=== PATIENT | male | born 1985 | race Hispanic/Latino ===

== ENCOUNTER 2020-10-24 11:08 | Emergency (ER) | payer BC ==
--- NOTE | 2020-10-24 15:19 | ER ---
Nurse's Notes [facility] Name: Aravind Kaplan Age: 34 yrs Sex: Male : 1985 Arrival Date: 10/24/2020 Time: 11:14 Bed 17 Private MD: Diagnosis: Hypertension;Palpitations Presentation: 10/24 12:09 Chief complaint: Patient states: LEIVA, not feeling good, dizzy at times, fast HR, anxious ll1 for 1 day. No fever, no cough. Coronavirus screen: Client denies travel out of the [place] in the last 14 days. At this time, the client does not indicate any symptoms associated with coronavirus-19. Ebola Screen: Patient denies travel to an Ebola-affected area in the 21 days before illness onset. Initial Sepsis Screen: Does the patient meet any 2 criteria? No. Patient's initial sepsis screen is negative. Does the patient have a suspected source of infection? No. Patient's initial sepsis screen is negative. Risk Assessment: Do you want to hurt yourself or someone else? Patient reports no desire to harm self or others. Onset of symptoms. 12:09 Method Of Arrival: Ambulatory ll1 12:09 Acuity: PARISH 3 ll1 Historical: - Allergies: 12:13 No Known Allergies; ll1 - PMHx: 12:13 Kidney stones; ll1 - PSHx: 12:13 Kidney stents; ll1 - Immunization history:: Flu vaccine is not up to date. - Social history:: Smoking status: Patient denies any tobacco usage or history of. Patient/guardian denies using tobacco, the patient reports quitting approximately 2 years ago. Screenin:03 Abuse screen: Denies threats or abuse. Nutritional screening: No deficits noted. tw2 Tuberculosis screening: No symptoms or risk factors identified. Fall Risk None identified. Assessment: 14:40 General: Appears in no apparent distress. obese, well groomed, Behavior is calm, tw2 cooperative, appropriate for age. Pain: Denies pain. Neuro: Level of Consciousness is awake, alert, obeys commands, Oriented to person, place, time, situation. Cardiovascular: Capillary refill < 3 seconds Patient's skin is warm and dry. Cardiovascular: Reports palpitations, "when it happened earlier I was having some palpitations but its fine now". Respiratory: Airway is patent Respiratory effort is even, unlabored, Respiratory pattern is regular, symmetrical. GI: No signs and/or symptoms were reported involving the gastrointestinal system. Abdomen is round non-distended. : No signs and/or symptoms were reported regarding the genitourinary system. EENT: No signs and/or symptoms were reported regarding the EENT system. Derm: No signs and/or symptoms reported regarding the dermatologic system. Skin is intact, is healthy with good turgor, Skin is dry, Skin temperature is warm. Musculoskeletal: Range of motion: intact in all extremities. 15:02 Reassessment: provider at bedside at this time. tw2 15:34 Reassessment: Patient appears in no apparent distress at this time. No changes from tw2 previously documented assessment. Patient and/or family updated on plan of care and expected duration. Pain level reassessed. Patient is alert, oriented x 3, equal unlabored respirations, skin warm/dry/pink. Vital Signs: 12:09 BP 150 / 105; Pulse 97; Resp 16; Temp 99.5; Pulse Ox 100% on R/A; Weight 111.13 kg; ll1 Height 5 ft. 8 in. (172.72 cm); Pain 3/10; 14:45 BP 142 / 83; Pulse 86; Resp 18; Pulse Ox 100% on R/A; tw2 12:09 Body Mass Index 37.25 (111.13 kg, 172.72 cm) ll1 ED Course: 11:14 Patient arrived in ED. mr 12:12 Triage completed. ll1 12:13 Arm band placed on. ll1 14:40 Bed in low position. Call light in reach. air sampling and monitoring on. Pulse ox on. NIBP on. tw2 14:42 Asa Waters PA is PHCP. jr8 14:42 Teofilo Garcia MD is Attending Physician. jr8 14:45 Velvet Westfall, KATIE is Primary Nurse. tw2 15:18 Lewis Bean MD is Referral Physician. jr8 15:35 No provider procedures requiring assistance completed. Patient did not have IV access tw2 during this emergency room visit. Administered Medications: No medications were administered Outcome: 15:19 Discharge ordered by . jr8 15:35 Discharged to home ambulatory. tw2 15:35 Condition: stable 15:35 Discharge instructions given to patient, Instructed on discharge instructions, follow up and referral plans. Demonstrated understanding of instructions, follow-up care. 15:36 Patient left the ED. tw2 Signatures: Natalie Guadarrama Josh, PA PA jr8 Velvet Westfall RN RN tw2 Wilmer Ornelas RN RN ll1
--- NOTE | 2020-10-24 15:19 | EDPHYS ---
Physician Documentation [facility] Name: Aravind Kaplan Age: 34 yrs Sex: Male : 1985 Arrival Date: 10/24/2020 Time: 11:14 Bed 17 Private MD: ED Physician Teofilo Garcia HPI: 10/24 15:19 This 34 yrs old Male presents to ER via Ambulatory with complaints of jr8 Headache, fast heart rate. 15:19 Onset: The symptoms/episode began/occurred acutely, today. Associated signs and jr8 symptoms: Pertinent positives: palpitations . Severity of symptoms: At its worst the pain was mild. The patient has experienced a previous episode. The patient has not recently seen a physician. Patient stated that last time he had this it was elevation in his BP. Patient mildly elevated upon arrival. Historical: - Allergies: 12:13 No Known Allergies; ll1 - PMHx: 12:13 Kidney stones; ll1 - PSHx: 12:13 Kidney stents; ll1 - Immunization history:: Flu vaccine is not up to date. - Social history:: Smoking status: Patient denies any tobacco usage or history of. Patient/guardian denies using tobacco, the patient reports quitting approximately 2 years ago. ROS: 15:19 Eyes: Negative for injury, pain, redness, and discharge, ENT: Negative for injury, jr8 pain, and discharge, Neck: Negative for injury, pain, and swelling, Respiratory: Negative for shortness of breath, cough, wheezing, and pleuritic chest pain, Abdomen/GI: Negative for abdominal pain, nausea, vomiting, diarrhea, and constipation, Back: Negative for injury and pain, MS/Extremity: Negative for injury and deformity, Skin: Negative for injury, rash, and discoloration. 15:19 Cardiovascular: Positive for palpitations. 15:19 Neuro: Positive for headache. Exam: 15:19 Eyes: Pupils equal round and reactive to light, extra-ocular motions intact. Lids and jr8 lashes normal. Conjunctiva and sclera are non-icteric and not injected. Cornea within normal limits. Periorbital areas with no swelling, redness, or edema. ENT: Nares patent. No nasal discharge, no septal abnormalities noted. Tympanic membranes are normal and external auditory canals are clear. Oropharynx with no redness, swelling, or masses, exudates, or evidence of obstruction, uvula midline. Mucous membranes moist. Neck: Trachea midline, no thyromegaly or masses palpated, and no cervical lymphadenopathy. Supple, full range of motion without nuchal rigidity, or vertebral point tenderness. No Meningismus. Cardiovascular: Regular rate and rhythm with a normal S1 and S2. No gallops, murmurs, or rubs. Normal PMI, no JVD. No pulse deficits. Respiratory: Lungs have equal breath sounds bilaterally, clear to auscultation and percussion. No rales, rhonchi or wheezes noted. No increased work of breathing, no retractions or nasal flaring. Abdomen/GI: Soft, non-tender, with normal bowel sounds. No distension or tympany. No guarding or rebound. No evidence of tenderness throughout. Back: No spinal tenderness. No costovertebral tenderness. Full range of motion. Skin: Warm, dry with normal turgor. Normal color with no rashes, no lesions, and no evidence of cellulitis. MS/ Extremity: Pulses equal, no cyanosis. Neurovascular intact. Full, normal range of motion. Neuro: Awake and alert, GCS 15, oriented to person, place, time, and situation. Cranial nerves II-XII grossly intact. Motor strength 5/5 in all extremities. Sensory grossly intact. Cerebellar exam normal. Normal gait. 15:27 ECG was reviewed by the Attending Physician. jr8 Vital Signs: 12:09 BP 150 / 105; Pulse 97; Resp 16; Temp 99.5; Pulse Ox 100% on R/A; Weight 111.13 kg; ll1 Height 5 ft. 8 in. (172.72 cm); Pain 3/10; 14:45 BP 142 / 83; Pulse 86; Resp 18; Pulse Ox 100% on R/A; tw2 12:09 Body Mass Index 37.25 (111.13 kg, 172.72 cm) ll1 MDM: 15:01 Patient medically screened. jr8 15:11 Data reviewed: vital signs, nurses notes, and as a result, I will discharge patient. jr8 Data interpreted: Pulse oximetry: on room air is 100 %. Interpretation: normal. Counseling: I had a detailed discussion with the patient and/or guardian regarding: the historical points, exam findings, and any diagnostic results supporting the discharge/admit diagnosis, the need for outpatient follow up, a family practitioner, to return to the emergency department if symptoms worsen or persist or if there are any questions or concerns that arise at home. 10/24 15:19 Order name: EKG - Nurse/Tech; Complete Time: 15:34 jr8 EC:27 Rate is 77 beats/min. Rhythm is regular, Normal Sinus Rhythm. QRS [place] is Normal. NE jr8 interval is normal at 160 msec. QRS interval is normal at 106 msec. QT interval is normal at 445 msec. No Q waves. T waves are Normal. No ST changes noted. Clinical impression: Normal ECG. Interpreted by me. Reviewed by me. Administered Medications: No medications were administered Disposition: 10/25 07:27 Co-signature as Attending Physician, Teofilo Garcia MD I agree with the assessment and tw4 plan of care. Disposition: 10/24/20 15:19 Discharged to Home. Impression: Hypertension, Palpitations. - Condition is Stable. - Discharge Instructions: Hypertension, Palpitations. - Work release form, Medication Reconciliation Form, Thank You Letter, Antibiotic Education, Prescription Opioid Use form. - Follow up: Lewis Bean MD; When: 5 - 6 days; Reason: Recheck today's complaints, Continuance of care, Re-evaluation by your physician. - Problem is new. - Symptoms are resolved. Signatures: Asa Waters PA PA jr8 Velvet Westfall, RN RN tw2 Teofilo Garcia MD MD tw4 Wilmer Ornelas RN RN ll1 Corrections: (The following items were deleted from the chart) 10/24 15:36 15:19 10/24/2020 15:19 Discharged to Home. Impression: Hypertension; Palpitations. tw2 Condition is Stable. Forms are Medication Reconciliation Form, Thank You Letter, Antibiotic Education, Prescription Opioid Use. Follow up: Lewis Bean; When: 5 - 6 days; Reason: Recheck today's complaints, Continuance of care, Re-evaluation by your physician. Problem is new. Symptoms are resolved. jr8
[2020-10-24 16:29] VITALS: TEMP 99.5; O2SAT 100
[2020-10-24 16:31] VITALS: BP 142/83
== END 2020-10-24 15:36 | disposition home or self-care (01) ==
LOC: ER 11:08
DX: I10 Essential (primary) hypertension (principal); Z87.442 Personal history of urinary calculi
CPT/HCPCS: 93005; 99284